=== PATIENT | female | born 1955 | race Caucasian/White ===

== ENCOUNTER 2020-11-15 09:32 | Inpatient (IN) | payer MEDICARE, OTHER ==
[~2020-11-15] VITALS: Ht 172.7 cm; Wt 206.6 kg
[~2020-11-15 09:32] MED LIST: ACETAMINOPHEN325 M1 PO; ARTIFICIAL TEAR15 M1 OPTH; ASPIRIN EC81 MG PO; BUSPIRONE HCL10 MG PO; CIPRO500 MG PO; DUONEB 0.5 MG-33 ML INH; KLOR-CON 1010 MEQ PO; LASIX20 MG PO; LEVOTHYROXINE50 MCG PO; LISINOPRIL20 MG PO; NORCO 5-325 TA1 EACH PO; NORVASC5 MG PO; NYSTATIN100000 UN1; OMEPRAZOLE20 MG PO; PREDNISONE10 MG PO; SEROQUEL100 MG PO; SERTRALINE HCL100 MG PO; TRAZODONE HCL50 MG PO; VALTREX1000 MG PO; VITAMIN D-32000 UNI1 PO; ZOFRAN ODT8 MG PO; ZYRTEC10 MG PO; [UNRECOGNIZED DRUG - OTHER] PO
[2020-11-15] MEDS ORDERED: LEVOTHYROXINE125 MCG PO (09:33)
[2020-11-15] MEDS ORDERED: METOPROLOL SUC100 MG PO (09:34)
[2020-11-15] MEDS ORDERED: DULOXETINE HCL60 MG PO (09:34)
[2020-11-15] MEDS ORDERED: AMLODIPINE BESYL5 MG PO (09:35)
--- NOTE | 2020-11-15 14:32 | NUR ---
1340: PT ARRIVED TO ROOM 121 VIA STRECHER. SHE DENIES ANY SOB, CP OR OTHER PAIN AT THIS TIME. TRUNG ORIENTED TO HER ROOM AND HER CARE PLAN AT THIS TIME. ASSESSMENT COMPLETED.
--- NOTE | 2020-11-15 15:12 | NUR ---
DR WHITTAKER WAS CALLED AND NOTIFIED OF THE PT'S BP, WILL RECHECK SHORTLY.
--- NOTE | 2020-11-15 15:30 | NUR ---
PT ASSISTED IN REPOSITIONING IN HER BED. SHE STATES THAT SHE IS COMFORTABLE AND SHE DENIES ANY SOB.
--- NOTE | 2020-11-15 15:54 | EKG ---
[facility] [address] [place], [place] [address] Signed Sinus bradycardia with 1st degree AV block Left axis deviation Right bundle branch block Possible Lateral infarct , age undetermined Abnormal ECG No previous ECGs available Confirmed by HALEY WHITTAKER DO ([id number]) on 11/15/2020 3:54:29 PM Electronically Signed By: HALEY WHITTAKER DO 11/15/20 1554 PATIENT NAME: BI ISRAELBARTOLO LEACH Electrocardiogram DATE OF : 51 PHYSICIAN: HALEY WHITTAKER DO REPORT #: [id number] REPORT IS CONFIDENTIAL AND NOT TO BE RELEASED WITHOUT AUTHORIZATION
--- NOTE | 2020-11-15 15:54 | NUR ---
MED REC COMPLETE
--- NOTE | 2020-11-15 15:56 | NUR ---
PATIENT DINNER AND BREAKFAST FOR HER.
--- NOTE | 2020-11-15 16:10 | NUR ---
Pt placed back on the bipap as ordered.
--- NOTE | 2020-11-15 19:05 | NUR ---
SHIFT REPORT RECEIVED FROM MANSOOR SAWANT. RT IN ROOM AT THIS TIME.
--- NOTE | 2020-11-15 20:30 | NUR ---
IN TO GET VITALS, FRESH ICE WATER GIVEN, CATH CARE DONE, NO FURTHER NEEDS AT THIS TIME, RN IN FOR ASSESSMENT
--- NOTE | 2020-11-15 20:43 | NUR ---
ASSESSMENT COMPLETED. GCS 15, A&O X4. PT ON BIPAP, STATES IT DOES HELP HER BREATH. LUNGS CLEAR BUT DIMINISHED. HEART TONES REGULAR. ABD OBESE. PT STATES NORMAL, BOWEL TONES ACTIVE. CMS INTACT. LEFT FOREARM HAS BRUISE FROM IV STICK. REDNESS UNDER BOTH SIDE OF PANNUS, PILLOWCASES PLACED IN FOLDS. REDNESS IN GROIN, AREA CLEANED. MENDEZ CARE PROVIDED BY HERNANDO LONG. IV CDI, WNL, FLUSHED WELL. SCHEDULED MED PROVIDED. DAUGHTER IN ROOM. NO OTHER NEEDS AT THIS TIME. PT ENCOURAGED TO REPOSITION SELF FREQUENTLY SHE DECLINES TO BE POSITIONED WITH PILLOWS. CALL LIGHT IN REACH.
--- NOTE | 2020-11-15 23:00 | NUR ---
PT RESTING IN BED, ON PHONE. BIPAP ON. DAUGHTER IN ROOM. NO NEEDS AT THIS TIME. CALL LIGHT IN REACH.
--- NOTE | 2020-11-16 00:57 | NUR ---
PT RESTING IN BED, EYES CLOSED. CPAP ON. DAUGHTER IN ROOM. CALL LIGHT IN REACH.
--- NOTE | 2020-11-16 02:15 | NUR ---
IN TO GET PT 2AM VITALS, NO FURTHER NEEDS AT THIS TIME
--- NOTE | 2020-11-16 04:15 | NUR ---
PT RESTING IN BED, EYES CLOSED. BIPAP ON. DAUGHTER IN ROOM. CALL LIGHT IN REACH.
--- NOTE | 2020-11-16 07:13 | NUR ---
0705: Report received from Laina SAWANT. Pt resting in her bed visiting with her daughter with her call waltres within reach.
--- NOTE | 2020-11-16 09:43 | NUR ---
PT STATES HER BREATING FEELS FINE, SAT 98% ON 3L VIA OXYMASK. PT USING HER IS AT THIS TIME. SHELODN-AREA AND ABD FOLDS CLEANED AND MICONAZORB APPLIED AND DRY, CLEAN CLOTHS PLACED TO THE ABD FOLD AREAS. PT STATES SHE IS HAVING CHRONIC BACK PAIN WHICH SHE STATES IS AT AN ACCEPTABLE LEVEL FOR HER. SHE DENIES ANY OTHER PROBLEMS OR NEEDS. ASSESSMENT COMPLETED.
--- NOTE | 2020-11-16 10:35 | NUR ---
Pt called and requested some water and is under her limit at this point. Pt given some water at this time. Pt denies any other needs. She is able to reposition herself in bed.
--- NOTE | 2020-11-16 11:30 | NUR ---
Pt denies any needs at this time.
--- NOTE | 2020-11-16 12:39 | NUR ---
PT DENIES ANY SOB OR TROUBLE WITH HER BREATHING AT THIS TIME. SHE REMAINS ON THE OXYMASK AT 2L.
--- NOTE | 2020-11-16 14:43 | NUR ---
She had a large soft BM of which she was incont. Pt cleaned and fresh bedding placed.
--- NOTE | 2020-11-16 14:53 | NUR ---
Dr Mendoza called and notified of the pt's urine output, BP and o2 sat.
--- NOTE | 2020-11-16 16:32 | NUR ---
THE CAREGIVER AND I GAVE HER A COMPLETE BED BATH CHANGED HER GOWN AND PUT BODY LOTION ALL OVER HER BODY. WE ALSO DID 2 SHAMPOO CAPS AND HER CAREGIVER COMBED HER HAIR AND A BRAID IN HER HAIR. AND THE PATIENT WASHED HER FACE.
--- NOTE | 2020-11-16 17:09 | NUR ---
Pt denies any sob or new problems at this time. Pt's grandaughter remains in the room with the pt and her call walters is within reach.
--- NOTE | 2020-11-16 18:34 | NUR ---
Pt states she is having some slight sob, sat is 96% on 2l via oxymask. Lung sounds decreased throughout which is unchanged. Pt placed back on the bipap at this time. Pt states she will call if she has any more sob. Call walters remains within reach.
--- NOTE | 2020-11-16 21:06 | NUR ---
pt louis, "Im scared, I have that heavy thing on my face, I do not know where xochitl or why xochitl here, and whats that thing on my face". Pt on aerosol precautions, took CPAP mask off, reoriented, was very anxious, called her daughter via cell phone. calmed down afterdaughter explained and received several cues from this RN. sats 88-89% on room air, 92-95% after keeping oxymask on. calmer, all procedures explained, Lungs dim at bases, takes shallow breaths, very obese. red under breast and pannus areas and open areas under breasts and L pannus area. powder applied as per orders. bruising on arms healing. sl RW patent. generalized edema, legs elevated. f/c patent.Call light, home cell phone at hands reach, fluids at bedside. Pt on aerosol precautions
--- NOTE | 2020-11-16 21:30 | NUR ---
Pt sitting up in bed, room air, lungs clear bilat, dim at bases. Unable to tolerate water flushed, took only 5cc and c/o abd pain and statrted hyperventilating, no return of feeding noted. Declines to have TF restarted. c/o R mandible-under the ear pain area warm, tender, marked. R NGT in place. measured from tip of nose to begining of purple tip. no emesis, no c/o pain. lower abd slightly distended, soft, jordan, denies having had bm's today. SL LAC patent. red areas noted both upper chest, below elbow areas. L side strong hand call center rn, no weakness noted on L foot either. Flat affect. accepted oral green sponge, NPO. given several cues. cont to decline to have TF restarted. mother in room. Will continues to reinforce teaching.
--- NOTE | 2020-11-17 00:51 | NUR ---
AWAKE, PLAYING WITH PHONE, YELLOW EYE DISCHARGE BILAT NOTED, BILAT REDNESS OF SCLERA AND CONJUCTIVE, HX OF POOR VISION, EYES CLEANSED WITH WARM WATER AND WASH CLOTH. PROCEDURE EXPLAINED, COOP. USING CELLPHONE
--- NOTE | 2020-11-17 03:54 | NUR ---
Resting, OXymask 2L in place, no resp distress. call light at bedside legs elevated, Pt reposions self, f/c patent
--- NOTE | 2020-11-17 05:54 | NUR ---
Pt has slept off and on. Had CPAP at begining of shift, took off as it felt very heavy and made her claustrophobic. OXymask at 2L in place, sats WNL, no sob or cough noted. Was very anxious at begining of shift, woken up crying and screaming, confused to place, easily reoriented, required several cues by daughter and this RN prior to calming down. pt c/o poor vision, creamy eye drainage, red sclera and conjuctive. eyes cleansed. lungs dim at bases, red areas under breasts and pannus, powder applied as ordered. small laceration under L breast and pannus. f/c not chronic patent. edema to LE. sl patent. Repositions self in bed. on Aerosol precautions. jennifer lift. Tolerating fluids well.
--- NOTE | 2020-11-17 06:17 | NUR ---
Coop with lab draw, repositions self, took meds w/o problems, continues to be on 2000cc fl restriction, tolerating well. f/c patent, goes back to sleep, fluids and call light at bedside, bruising over arms healing, sl patent
--- NOTE | 2020-11-17 07:20 | NUR ---
this rn received report from hill ho. pt states that she is doing good this am and needs to order breakfast, this rn to call down breakfast
--- NOTE | 2020-11-17 08:27 | NUR ---
THIS RN IN PTS ROOM TO GIVE PT HER MORNING MEDS. PT DENIES SHORTNESS OF BREATH THIS AM OR CHEST PAIN. PT HAS AN INCREASED BP OF 213/89 THIS RN TO GIVE SCHEDULED AMLODIPINE. THIS RN INFORMED CHARGE NURSE NATY WHO WILL UPDATE IN MORNING MEETING THIS RN DID AN OXYGEN TRIAL- PT ON ROOM AIR RANGED FROM 88-91% ON ROOM AIR. THIS RN PLACED PT ON 1L OXYMASK
--- NOTE | 2020-11-17 08:52 | NUR ---
aware of pts bp this am
--- NOTE | 2020-11-17 09:32 | NUR ---
THIS RN IN PTS ROOM TO RECHECK PT SBP. BP IMPROVED AT THIS TIME, STILL HYPERTENSIVE BUT BETTER. PT STATES THAT SHE IS TIRED DUE TO HAVING A NIGHTMARE OVER NIGHT ABOUT HAVING AN OCTUPUSS ON HER FACE- IT WAS ACUTALLY HER CPAP MACHINE- SHE STATES THAT SHE ISNT USED TO THE FULL FACE CPAP MASK
--- NOTE | 2020-11-17 11:15 | NUR ---
this rn in pts room with [facility] certified nursing assistant instructor rana to get pt off of the bedpan. pt toelrated well and ba care provided
--- NOTE | 2020-11-17 11:20 | NUR ---
this rn placed pt on room air. pt sating 90-93% on room air. pt was on 0.5l oxymask sating 93-95%
--- NOTE | 2020-11-17 12:03 | NUR ---
in pts room. he found pt to be sating at 87% on room air. pt put back on o2. anticipating pt to go home on o2
--- NOTE | 2020-11-17 13:58 | NUR ---
pt off unit at this time for 2 view chest x-ray
--- NOTE | 2020-11-17 14:15 | NUR ---
pt arrived back to floor
--- NOTE | 2020-11-17 15:50 | NUR ---
THIS RN IN PTS ROOM TO CHECK ON PT, PT SITTING IN BED WITH GRANDDAUGHTER AT BEDSIDE. THIS RN ANSWEREED GRANDDAUGHTERS QUESTIONS ABOUT PTS CARE TO THE BEST OF HER ABILITY
--- NOTE | 2020-11-17 19:30 | NUR ---
AWAKE, WERING HOME CPAP, NO C/O PAIN. TOLERATING FLUIDS WELL
--- NOTE | 2020-11-17 21:00 | NUR ---
PT CONTINUES ON AEROSOLIZED PRECAUTIONS, WEARING HOME CPAP. NO C/O SOB. LUNGS DIM AT BASES, PT VERY OBESE, RED AREAS UNDER BREAST AND PANNUS, OPEN AREA UNDER L BREAST AND L PANNUS AREA. POWDER APPLIED PER ORDERS, AREA UNDER BREAST MUCH BETTER, PANNUS RED AREAS NO CHANGES, SHELDON CARE AND F/C CARE DONE. F/C PATENT, DRAINING YELLOW URINE. PT REPOSITIONS SELF IN BED. PLEASANT AND COOP. SLIGHT EYE YELLOW DRAINAGE, CLEANSED WITH WARM WET TOWEL. SCLERA SLIGHTLY RED, MUCH IMPROVED THAN YESTERDAY. ALL PROCEDURES EXPLAINED, COOP. LEGS GENERALIZED EDEMA AT HANDS AND LEGS 2+ CHRONIC, LILLIAN LIFT. TOLERATING FLUDIS WELL, ON FLUID RESTRICTION.
--- NOTE | 2020-11-18 00:56 | NUR ---
In bed, wearing home CPAP, no distress. aware of fluid restriction, coop. call light at hands reach
--- NOTE | 2020-11-18 02:42 | NUR ---
Resting, wearing CPAP, on aerosol precautions, no distress,
--- NOTE | 2020-11-18 05:00 | NUR ---
home CPAP off, placed on Oxymask 2L , coop with assessment, helps with turning self, legs elevated, edematous, generalized edema. no changes. lungs dim at bases. will place CPAP again agter blood draws, tolerating fluids, on fluid restriction. f/c draining cloudy urine with strong smell at this time QS
--- NOTE | 2020-11-18 05:25 | NUR ---
Pt has worn her home CPAP all night, Oxymask placed on for 30 mintues for lab work, back on CPAP, lungs w/o changes, no cough, bruising over arms healing generalized edema, bed bound, helps with turning. f/c patent, draining large amounts of cloudy with strong smelling urine. Coop.
--- NOTE | 2020-11-18 07:41 | NUR ---
PT RESTING EYES CLOSED CPAP IN PLACE AT TIME OF SHIFT EXCHANGE. BREATHING EVEN AND UNLABORED APPEARS RESTFUL
--- NOTE | 2020-11-18 08:09 | NUR ---
PATIENT IN ROOM, ON HOME CPAP MACHINE, PATIENT'S BREAKFAST IS WAITING WHEN ROOM IS CLEARED, WILL CHECK WITH PATIENT AGAIN SOON
--- NOTE | 2020-11-18 10:20 | NUR ---
PATIENT IS ON CPAP
--- NOTE | 2020-11-18 10:28 | NUR ---
PT REPOSITIONS IN BED, AWAKE AND TALKATIVE, CONTINUES TO WEAR CPAP. DENIES DISCOMFORTS OR NEEDS OF. PT STATES SHE IS HOPING TO GO HOME TODAY.
--- NOTE | 2020-11-18 10:30 | NUR ---
PATIENT ASLEEP WITH CPAP IN PLACE. WILL CHECK LATER.
--- NOTE | 2020-11-18 12:25 | NUR ---
PATIENT IN BED, DAUGHTER (CAREGIVER), IS IN ROOM WITH PATIENT, PATIENT IS EATING HER LUNCH, PATIENTS I'S AND O'S WERE CHARTED AND MENDEZ CATH WAS EMPTIED, PATIENT WANTED NO OTHER CARES AT THIS TIME. WILL RECHECK AFTER LUNCH TO DO AFTERNOON VITAL SIGNS
--- NOTE | 2020-11-18 13:24 | NUR ---
PT IS SLEEPING WITH CPAP ON. WILL FOLLOW UP AGAIN
--- NOTE | 2020-11-18 13:32 | NUR ---
PT SITTING UP IN BED TALKING WITH A VISITOR. LUNCH WELL TOLERATED, PT DENIES NEEDS AT THIS TIME.
--- NOTE | 2020-11-18 14:52 | NUR ---
PATIENT WAS IN BED, PATIENT CALLED TO USE THE BEDPAN, INTAKE OUTPUT AND VITAL SIGNS WERE DONE FOR 1400
--- NOTE | 2020-11-18 16:09 | NUR ---
BED BATH PROVIDED PT IS COOPERATIVE. SPECIAL ATTN TO SKIN FOLD AREAS AND POWDER APPLIED. VISITOR REMAINS IN THE ROOM
--- NOTE | 2020-11-18 16:15 | NUR ---
PT TURNED TO THE SIDE DURING BEDBATH WHILE FIXING COVERS AND CLEANINNG SHE C/O FEELING DIZZY. PT RETURNS TO RESTING SUPINE AND REACHES FOR CPAP, ENCOUARAGED HER TO USE 02 INSTEAD. SHE RECOVERS QUICKLY 02 AT 2L FOR 2-3 MINUTES
--- NOTE | 2020-11-18 16:35 | NUR ---
PT DENIES DIZZINESS, SOB, OR OTHER DISCOMFORTS VISITING ACTIVELY WITH FRIEND
--- NOTE | 2020-11-18 17:05 | NUR ---
MET WITH DR PEREZ AT 1615 WHO STATES PATIENT IS WANTING TO GO HOME TODAY, SHE HAS BEEN OFF OXYGEN AND SHE MAY LOOK AT DISCHARGE THIS EVENING. SPOKE WITH PATIENT IN ROOM, AND DAUGHTER RJ ALSO THERE. PATIENT HAD CPAP ON WHEN I ENTERED. HER HOME HEALTH CLINICAL SUPERVISOR PRANAY ALSO WAS IN THE ROOM AND PATIENT AND DAUGHTER HAD REPORTED THAT PATIENT HAD FELT SOB AND DIZZY AND WAS ASKING FOR OXYGEN, PRANAY HAD PLACED HER BACK ON 2L MASK. PATIENT STATES THE OXYGEN HELPS. SHE STATED TO ME SHE DOES HAVE EPISODES LIKE THAT AT HOME WITH ACTIVITY AND THE STAFF HAD BEEN IN TO MOVE HER AROUND. WE DISCUSSED DISCHARGE PLANS. PATIENT LIVES WITH GRANDDAUGHTER ROGE AND HER FAMILY. SHE IS MAIN CAREGIVER. PATIENT HAS 2 WHEELCHAIRS, HOSPITAL BED, BSC, LILLIAN, CPAP. RT CAME TODAY AND CLEANED MACHINE AND PLACED NEW FILTER. PATIENT USES A [facility] [employer] [facility] FOR TRANSPORTATION TO DR OFFICE BUT HAS NOT BEEN THERE WITH COVID. PATIENT CAME TO HOSPITAL VIA EMS. BOTH SHE AND DAUGHTER STATE THEY WERE NOT TREATED KINDLY BY EMS SERVICE WHEN THEY CAME AND HAD MULTIPLE COMPLAINTS. I ADVISED THAT I DO NOT HAVE CONNECTION WITH THEM, I SUGGESTED THEY WRITE THIS UP IN LETTER FORM AND CALL THE CAPTAIN TO DISCUSS WITH HIM AND ALSO SEND THE LETTER. DAUGHTER STATES THEY WILL. WE DISCUSSED THAT PATIENT WAS WANTING TO DISCHARGE. WE DISCUSSED THAT SHE WAS BACK ON OXYGEN. THEY ARE WONDERING IF SHE IS GOING HOME WITH THIS. DISCUSSED WITH THEM THAT BECAUSE SHE HAD BEEN OFF TODAY, WE WERE NOT PLANNING ON THAT AND A RT QUALIFIER WILL NEED TO BE DONE BY RT. DISCUSSED HOW SHE WOULD GET HOME. THEY DO NOT WANT TO GO BY EMS, AND I EXPLAINED THAT MEDICARE WOULD NOT PAY FOR THAT IF SHE IS ABLE TO GO BY W/C. THEY WANT HER TO USE THE [employer] [facility] VAN. EXPLAINED THAT THAT CANNOT BE ARRANGED AFTER 5PM AND IT IS LATE, I CANNOT ARRANGE FOR THAT. PATIENT STATES SHE WOULD FEEL OK WITH STAYING TONIGHT TO MAKE SURE EVERYTHING IS "OK" WHEN SHE LEAVES. PATIENT PAYS GRANDDAUGHTER SOME RENT AND SHE PAYS UTILITIES AND SHE FEELS THEY ARE NOT AT RISK OF LOOSING UTILITIES. SHE HAS [employer] FOR FOOD ASSISTANCE. HER MEDS ARE COVERED. SHE GETS SS DISABILITY. SHE AND DAUGHTER SPOKE AT LENGTH OF NOT BEING SATISFIED WITH PCP. BOTH INDICATE THEY WANT TO POSSIBLY HAVE HER START GOING TO [facility]. I DISCUSSED THAT IS TOTALLY WITHIN HER RIGHTS. DISCUSSED OXYGEN AND COST IF SHE QUALIFIES. THEY ARE FINE WITH PAYING FOR THE FIRST MONTH. THEY WOULD USE [facility]. THEY BOTH STATE THEY KNOW OF NOTHING NEEDED TO GO HOME SAFELY. THEIR WORRY IS THAT NO ONE CAN COME IN BESIDES DAUGHTER OR GRANDDAUGHTER AND TOMORROW THEY BOTH WILL BE WORKING AND WOULD WANT GRANDSON TO COME WHO WOULD BE THE ONE STAYING WITH HER TOMORROW. I ASSURED THEM IF HE WANTS TO COME FOR DISCHARGE, HE CAN. I ALSO DISCUSSED THAT IF THEY HAVE ANY QUESTIONS WHEN SHE GETS HOME REGARDING DISCHARGE, THEY CAN CALL BACK AND TALK WITH CHARGE NURSE, STAFF DISCHARGING NURSE OR HEEL BOOM OPERATOR'S. THEY ARE HAPPY WITH THIS. QUESTIONS ANSWERRED. UPDATED DR PEREZ AND STAFF. RT QUALIFIER WILL BE ORDERED.
--- NOTE | 2020-11-18 17:56 | NUR ---
PT SATS 96% ON 2 L OXY MASK. EVENING MEAL SERVED [address] OX [address]
--- NOTE | 2020-11-18 19:38 | NUR ---
BEDSIDE REPORT RECEIVED FROM JESE PIRES. pt RESTING IN BED WATCHING TV. SPO2 95% WITH 2L OXYGEN BY OXYMASK. pt DENIES NEEDS AT THIS TIME. CALL LIGHT IN REACH.
--- NOTE | 2020-11-18 20:00 | NUR ---
3 pa THIS PRODUCTION COST ESTIMATOR AND PRIMARY RN ROXANA AND JESE CHAMBERLAIN CLEANED THE PATIENT FROM HAVING BOWEL MOVEMENT. MENDEZ/SHELDON CARE DONE. CLEANED AND DRIED PATIENT'S LOWER ABDOMINAL AND UNDER BREAST FOLDS AREA AND APPLIED POWDER DONE BY JESE SCHMIDT.
--- NOTE | 2020-11-18 20:45 | NUR ---
pt INCONTINENT OF LARGE BM. pt CLEANED, MENDEZ CARE COMPLETE, CHUX CHANGED. POWDER AND PILLOW CASES PLACED UNDER PANUS, REDNESS NOTED, SKIN INTACT. REDNESS UNDER BREASTS BILATERALLY, POWDER APPLIED. pt ABLE TO ASSIST WITH TURNS INDEPENDENTLY, AND MOVE UP IN BED INDEPENDENTLY. C/O SOB WITH MOVEMENT, SPO2 WNL WITH 2L OXYGEN BY OXYMASK IN PLACE. MENDEZ WITH CLOUDY YELLOW URINE EMPTIED. ALLOTTED ICE WATER PROVIDED. LUNG SOUNDS DIMINISHED, CLEAR THROUGHOUT. CALL LIGHT IN REACH.
--- NOTE | 2020-11-18 22:30 | NUR ---
CHECKED IN ON PT, SHE STATED THAT SHE WAS GOOD WITH THE ROOM TEMP. HAD COMPLAINED APPROX 30-45 MIN PREVIOUS THAT ROOM WAS TOO HOT, BUT NOW SAYS IT IS COMFORTABLE.
--- NOTE | 2020-11-19 00:56 | NUR ---
CHECKED ON pt. RESTING IN BED ON CELL PHONE. CPAP IN PLACE. SPO2 WNL.
--- NOTE | 2020-11-19 01:43 | NUR ---
PULSE OXIMETRY ALARMING, SPO2 86% WITH HOME CPAP ON. pt APPEARS TO BE SLEEPING, BREATHING UNLABORED LIGHTS OFF IN ROOM. RT MANNY NOTIFIED.
--- NOTE | 2020-11-19 03:24 | NUR ---
CHECKED ON pt. SPO2 87% ON 2L OXYGEN BLED INTO CPAP, TITRATED TO 3L OXYGEN BLED INTO CPAP, SPO2 INCREASES TO 89%. pt LYING IN BED, BREATHING UNLABORED, EYES CLOSED.
--- NOTE | 2020-11-19 05:13 | NUR ---
pt APEARS TO HAVE RESTED WELL THIS SHIFT. HOME CPAP ON WITH SLEEP, 3L OXYGEN BLED INTO CPAP TO MAINATAIN SATURATIONS >90%, pt NOTED TO DESAT TO 86% WITH CPAP USE AND NO OXYGEN. 2L OXYGEN BY OXMASK WHILE AWAKE. CPOX IN PLACE. pt C/O SHORTNESS OF BREATH WITH TURNING, REPOSITIONING IN BED. ABLE TO REPOSITION SELF INDEPENDENTLY. LARGE INCONTINENCE OF STOOL AT START OF SHIFT. MENDEZ IN PLACE, MENDEZ CARE COMPLETE THIS SHIFT.
--- NOTE | 2020-11-19 06:40 | NUR ---
CALL LIGHT ANSWERED. pt REQUESTING SOCK ADJUSTED. ASSESSMENT COMPLETE. LUNG SOUNDS CLEAR, DIMINISHED. SPO2 92-93% WITH 3L OXYGEN BLED INTO HOME CPAP. pt DENIES SOB AT THIS TIME. SCHEDULED MEDICATIONS ADMINISTERED. MENDEZ EMPTIED. CALL LIGHT IN REACH. NO ADDITIONAL REQUESTS AT THIS TIME.
--- NOTE | 2020-11-19 07:20 | NUR ---
PT RESTING EYES CLOSED AT TIME OF REPORT CPAP IN PLACE
--- NOTE | 2020-11-19 09:04 | NUR ---
PT TOLERATES 100% OF MORNING MEAL. RESTING WITH 02 ON 2L NC SATS 94%. DR PEREZ NOTIFIED OF HR 58 STATES HOLD METOPROLOL
--- NOTE | 2020-11-19 09:31 | NUR ---
PATIENT IN BED LISTENING TO MUSIC. WARM WASHCLOTH GIVEN. CALL LIGHT IN REACH. NO FURTHER NEEDS AT THIS TIME.
--- NOTE | 2020-11-19 09:51 | NUR ---
PT TOLERATES 100% OF MORNING MEAL. ANTICIPATES GOING HOME TODAY. SATS REMAIN IN THE LOW 90's ON 2 LNC. PT TALKING ON THE PHONE AT THIS TIME
--- NOTE | 2020-11-19 10:00 | NUR ---
faxed records from this stay to sleep lab attn: cora nichols for patients follow up on december 19 at 1:20.
--- NOTE | 2020-11-19 10:48 | NUR ---
BOTH VANESSA AND LADY TINOCO'D, PT PREPARED FOR DC. DC INSTRUCTIONS PROVIDED NO CHANGE TO HOME MEDS. PT ENCOURAGED "STRONGLY" TO KEEP APPTS SCHEDULED. SHE VERBALIZES UNDERSTANDING.
--- NOTE | 2020-11-19 12:10 | NUR ---
PATIENT HAS QUALIFIED FOR OXYGEN. RX/QUALIFIER/CLINICALS FAXED TO [facility]. CALLED LESLIE AT OFFICE, THEY HAVE PATIENT IN THE SYSTEM. DISCUSSED WITH HER PATIENT AND FAMILY ARE AWARE OF POSSIBLE FIRST MONTH PAYMENT NEEDED ARE ARE FINE WITH THIS. SHE WILL LET US KNOW WHEN THEY CAN SET UP. FAX CONFIRMATION RECEIVED @1213PM.
--- NOTE | 2020-11-19 13:24 | NUR ---
DR PEREZ NOTIFIED OF PT CURRENT BP 118/98. NO NEW ORDERS.
--- NOTE | 2020-11-19 13:52 | NUR ---
FAXED NEW OXYGEN ORDER TO [facility]. CONFIRMATION IN CHART. CALLING TO VERIFY THAT 3 PM DELIVERY IS GOOD FOR THEM.
== END 2020-11-19 13:15 | disposition home or self-care (01) | DRG 291 ==
LOC: ED 09:32 → MS 09:33
PROVIDERS: ADMIT Student in an Organized Health Care Education/Training Program; ATTEND Student in an Organized Health Care Education/Training Program
DX: I13.0 Hypertensive heart and chronic kidney disease with heart failure and stage 1 through stage 4 chronic kidney disease, or unspecified chronic kidney disease (principal); J96.01 Acute respiratory failure with hypoxia; I50.33 Acute on chronic diastolic (congestive) heart failure; J96.02 Acute respiratory failure with hypercapnia; Z68.44 Body mass index [BMI] 60.0-69.9, adult; Z20.822 Contact with and (suspected) exposure to COVID-19; N18.9 Chronic kidney disease, unspecified; E03.9 Hypothyroidism, unspecified; F39 Unspecified mood [affective] disorder; E66.9 Obesity, unspecified; J44.9 Chronic obstructive pulmonary disease, unspecified; Z88.5 Allergy status to narcotic agent; Z79.899 Other long term (current) drug therapy
CPT/HCPCS: 36415; 36600; 51702; 71045; 71046; 80048; 80053; 81001; 82803; 83605; 83735; 83880; 84439; 84443; 84484; 85025; 93005; 93010; 93306; 94660; 94760; 94761; 94762; 99285-25; C9803; J1650; J1940; U0003

== ENCOUNTER 2021-08-13 22:04 | Emergency (ER) | payer MEDICARE, OTHER ==
[~2021-08-13] VITALS: Ht 172.7 cm; Wt 206.4 kg
[~2021-08-13 22:04] MED LIST changes: +AMLODIPINE BESYL5 MG PO; +DULOXETINE HCL60 MG PO; +LEVOTHYROXINE125 MCG PO; +METOPROLOL SUC100 MG PO
--- NOTE | 2021-08-14 20:19 | EKG ---
[facility] [address] [place] [address] Signed Sinus rhythm with 1st degree AV block Left axis deviation Right bundle branch block Left ventricular hypertrophy with repolarization abnormality Possible Lateral infarct (cited on or before 15-NOV-2020) Abnormal ECG When compared with ECG of 15-NOV-2020 10:47, Vent. rate has increased BY 38 BPM Questionable change in QRS duration Questionable change in initial forces of Lateral leads Confirmed by HALEY WHITTAKER DO ([id number]) on 08/14/2021 8:19:06 PM Electronically Signed By: HALEY WHITTAKER DO 08/[id number] PATIENT NAME: TRUNG ISRAEL Electrocardiogram DATE OF : 51 PHYSICIAN: HALEY WHITTAKER DO REPORT #: [id number] REPORT IS CONFIDENTIAL AND NOT TO BE RELEASED WITHOUT AUTHORIZATION
== END 2021-08-14 01:12 | disposition home or self-care (01) ==
LOC: ED 22:04
DX: R06.00 Dyspnea, unspecified (principal); I12.9 Hypertensive chronic kidney disease with stage 1 through stage 4 chronic kidney disease, or unspecified chronic kidney disease; Z20.822 Contact with and (suspected) exposure to COVID-19; E66.01 Morbid (severe) obesity due to excess calories; J45.909 Unspecified asthma, uncomplicated; N18.4 Chronic kidney disease, stage 4 (severe); Z87.891 Personal history of nicotine dependence; Z88.5 Allergy status to narcotic agent; Z79.899 Other long term (current) drug therapy
CPT/HCPCS: 51701; 71045; 80053; 81001; 83880; 84484; 85025; 93005; 93010; 99285-25; C9803; U0003